=== PATIENT | male | born 1940 | race Caucasian/White ===

== ENCOUNTER 2022-03-08 21:21 | Inpatient (IN) | payer MEDICAID ==
[~2022-03-08] VITALS: Ht 162.6 cm; Wt 65.3 kg
[2022-03-08] MEDS ORDERED: SODIUM CHLORIDE 0.9% 1000ML BAG (SEPSIS BOLUS) IV ONE (21:45)
[2022-03-08 22:04] LABS: HEMATOCRIT. 38.2 % (42.0-52.0); HEMOGLOBIN. 12.6 g/dL (14.0-18.0); MEAN CORPUSCULAR HEMOGLOBIN 30.6 pg (28.0-32.0); MEAN CORPUSCULAR VOLUME 93.1 fL (80.0-94.0); MEAN PLATELET VOLUME 8.2 fl (7.4-10.4); PLATELET 153 x1000/uL (130-400); RED CELL DISTRIBUTION WIDTH 14.3 % (11.6-14.6)
[2022-03-08 22:09] LABS: CHLORIDE 97 mEq/L (98-107)
[2022-03-08 22:12] LABS: INR 1.3; PROTHROMBIN TIME 13.3 sec (9.6-11.0)
[2022-03-08 22:44] LABS: PLATELET ESTIMATE NORMAL
[2022-03-08] MEDS ORDERED: VANCOMYCIN 1G PREMIX 200 ML IV ONE (22:45)
[2022-03-08] MEDS ORDERED: PIPERACILLIN/TAZ 3.375G PREMIX 50 ML IV ONE (22:45)
[2022-03-09] VITALS (8 sets, daily range): BP systolic 124–148; BP diastolic 70–87
[2022-03-09 00:40] LABS: CLARITY URINE TURBID (CLEAR); COLOR URINE DARK YELLOW (YELLOW); KETONES URINE TRACE (NEGATIVE); LEUKOCYTE ESTERASE URINE 2+ (NEGATIVE); NITRITE URINE NEGATIVE (NEGATIVE); OCCULT BLOOD URINE 2+ (NEGATIVE); PROTEIN URINE 3+ (NEGATIVE); SPECIFIC GRAVITY URINE 1.022 (1.005-1.030)
[2022-03-09] MEDS ORDERED: ONDANSETRON HCL 4MG/2ML INJ IV PRN (11:00)
[2022-03-09] MEDS ORDERED: [UNRECOGNIZED DRUG - OTHER] PO (11:27)
[2022-03-09] MEDS: PIPERACILLIN/TAZOBACTAM 3.375 G in DEXTROSE 5% WATER 50 ML IV SCH ×2 (15:13→22:43)
[2022-03-09] MEDS: SODIUM CHLORIDE 0.9% 1,000 ML IV SCH (15:13)
[2022-03-10] VITALS (12 sets, daily range): BP systolic 122–141; BP diastolic 67–89
[2022-03-10] MEDS: SODIUM CHLORIDE 0.9% 1,000 ML IV SCH ×2 (00:56→14:08)
[2022-03-10] MEDS: PIPERACILLIN/TAZOBACTAM 3.375 G in DEXTROSE 5% WATER 50 ML IV SCH (05:40)
[2022-03-10 06:24] LABS: HEMATOCRIT. 35.2 % (42.0-52.0); HEMOGLOBIN. 11.8 g/dL (14.0-18.0); MEAN CORPUSCULAR HEMOGLOBIN 30.8 pg (28.0-32.0); MEAN CORPUSCULAR VOLUME 91.8 fL (80.0-94.0); MEAN PLATELET VOLUME 9.4 fl (7.4-10.4); PLATELET 106 x1000/uL (130-400); RED BLOOD CELL COUNT 3.83 mill/uL (4.7-6.1); RED CELL DISTRIBUTION WIDTH 14.2 % (11.6-14.6)
[2022-03-10 13:48] LABS: PLATELET ESTIMATE DECREASED
[2022-03-10] MEDS: MEROPENEM 1,000 MG in SODIUM CHLORIDE 0.9% 100 ML IV SCH ×2 (13:59→22:43)
[2022-03-11] VITALS (14 sets, daily range): BP systolic 123–147; BP diastolic 72–111
[2022-03-11] MEDS: SODIUM CHLORIDE 0.9% 1,000 ML IV SCH ×2 (03:13→15:58)
[2022-03-11 05:37] LABS: BASOPHILS % 0.2 % (0.0-2.0); HEMATOCRIT. 36.8 % (42.0-52.0); HEMOGLOBIN. 12.3 g/dL (14.0-18.0); LYMPHOCYTES % 8.5 % (20.0-50.0); MEAN CORPUSCULAR HEMOGLOBIN 30.9 pg (28.0-32.0); MEAN CORPUSCULAR VOLUME 92.7 fL (80.0-94.0); MEAN PLATELET VOLUME 9.4 fl (7.4-10.4); MONOCYTES % 2.5 % (2.0-8.0); NEUTROPHILS % 87.8 % (40.0-76.0); PLATELET 90 x1000/uL (130-400); RED BLOOD CELL COUNT 3.97 mill/uL (4.7-6.1); RED CELL DISTRIBUTION WIDTH 14.4 % (11.6-14.6)
[2022-03-11] MEDS ORDERED: ADENOSINE 3 MG/ML 2ML VIAL IV ONE (07:40)
[2022-03-11] MEDS ORDERED: ADENOSINE 3 MG/ML 2ML VIAL IV SCH ×2 (07:45→08:00)
[2022-03-11] MEDS ORDERED: DILTIAZEM HCL 125 MG in DEXT 5% WATER 100 ML IV PRN ×2 (08:00→08:13)
[2022-03-11] MEDS ORDERED: DILTIAZEM HCL 5MG/ML 5ML VIAL IV SCH (09:00)
[2022-03-11] MEDS: DILTIAZEM 125MG/125ML PMX 125 ML IV SCH (09:00)
[2022-03-11] MEDS ORDERED: METOPROLOL TARTRATE 25MG TABLET PO NR (10:30)
[2022-03-11] MEDS: MEROPENEM 1,000 MG in SODIUM CHLORIDE 0.9% 100 ML IV SCH ×2 (10:56→22:09)
[2022-03-11] MEDS: DIPHENHYDRAMINE 50MG/ML VIAL IV PRN (17:43)
[2022-03-11] MEDS: METOPROLOL TARTRATE 25MG TABLET PO SCH (22:09)
[2022-03-12] VITALS (12 sets, daily range): BP systolic 102–145; BP diastolic 64–92
[2022-03-12] MEDS: DIPHENHYDRAMINE 50MG/ML VIAL IV PRN ×3 (01:41→20:46)
[2022-03-12] MEDS: SODIUM CHLORIDE 0.9% 1,000 ML IV SCH ×2 (06:12→20:22)
[2022-03-12] MEDS: DILTIAZEM 125MG/125ML PMX 125 ML IV SCH ×2 (07:52→23:11)
[2022-03-12] MEDS: RISPERIDONE 0.5MG TABLET PO SCH (10:21)
[2022-03-12] MEDS: MEROPENEM 1,000 MG in SODIUM CHLORIDE 0.9% 100 ML IV SCH ×2 (10:21→20:46)
[2022-03-12] MEDS: METOPROLOL TARTRATE 25MG TABLET PO SCH (10:21)
[2022-03-12] MEDS ORDERED: METOPROLOL TARTRATE 50MG TABLET PO NR (14:45)
[2022-03-12] MEDS ORDERED: DILTIAZEM HCL 5MG/ML 5ML VIAL IV NR ×2 (14:45→22:28)
[2022-03-12 15:00] LABS: BG BASE EXCESS -9.9 mmol/L (-2.0-2.0); BG CARBOXYHEMOGLOBIN 0.1 % (0.5-1.5); BG DEOXYHEMOGLOBIN 11.9 % (0.0-5.0); BG HCO3 ACT 11.9 mmol/L (22.0-26.0); BG METHEMOGLOBIN 0.1 % (0.0-1.5); BG OXYGEN SATURATION 88.1 % (92.0-98.5); BG OXYHEMOGLOBIN 87.9 % (94.0-97.0); BG PCO2 18.8 mmHg (35.0-45.0); BG PH 7.419 (7.350-7.450); BG PO2 54.6 mmHg (75.0-100.0); BG SAMPLE SITE RIGHT BRACHIAL; BG TOTAL HEMOGLOBIN 14.5 g/dL (12.0-18.0); BG VENT MODE NASAL CANNULA
[2022-03-12] MEDS: IPRATROPIUM BROMIDE (0.02%) 0.5MG/2.5ML NEB HHN SCH ×2 (15:29→19:45)
[2022-03-12 18:09] LABS: HEMATOCRIT. 38.9 % (42.0-52.0); HEMOGLOBIN. 12.7 g/dL (14.0-18.0); MEAN CORPUSCULAR HEMOGLOBIN 30.2 pg (28.0-32.0); MEAN CORPUSCULAR VOLUME 92.3 fL (80.0-94.0); MEAN PLATELET VOLUME 9.6 fl (7.4-10.4); PLATELET 111 x1000/uL (130-400); RED BLOOD CELL COUNT 4.21 mill/uL (4.7-6.1); RED CELL DISTRIBUTION WIDTH 14.4 % (11.6-14.6)
[2022-03-12 18:25] LABS: CHLORIDE 107 mEq/L (98-107)
[2022-03-12] MEDS ORDERED: LORAZEPAM 0.5MG TABLET PO PRN (19:30)
[2022-03-12 19:34] LABS: PLATELET ESTIMATE DECREASED
[2022-03-12] MEDS: METOPROLOL TARTRATE 50MG TABLET PO SCH (20:46)
[2022-03-13] VITALS (12 sets, daily range): BP systolic 104–132; BP diastolic 48–89
[2022-03-13] MEDS ORDERED: POTASSIUM CHLORIDE 20MEQ TABLET SR PO NR
[2022-03-13] MEDS: IPRATROPIUM BROMIDE (0.02%) 0.5MG/2.5ML NEB HHN SCH ×6 (00:01→20:44)
[2022-03-13] MEDS ORDERED: FUROSEMIDE 40MG/4ML VIAL IVP NR (00:15)
[2022-03-13 06:35] LABS: CHLORIDE 109 mEq/L (98-107)
[2022-03-13 06:56] LABS: HEMATOCRIT. 38.2 % (42.0-52.0); HEMOGLOBIN. 12.5 g/dL (14.0-18.0); MEAN CORPUSCULAR VOLUME 91.5 fL (80.0-94.0); MEAN PLATELET VOLUME 9.9 fl (7.4-10.4); PLATELET 125 x1000/uL (130-400); RED BLOOD CELL COUNT 4.17 mill/uL (4.7-6.1); RED CELL DISTRIBUTION WIDTH 14.2 % (11.6-14.6)
[2022-03-13] MEDS: MEROPENEM 1,000 MG in SODIUM CHLORIDE 0.9% 100 ML IV SCH ×3 (09:53→23:00)
[2022-03-13] MEDS: RISPERIDONE 0.5MG TABLET PO SCH (09:53)
[2022-03-13] MEDS: METOPROLOL TARTRATE 50MG TABLET PO SCH (09:53)
[2022-03-13 11:20] LABS: PLATELET ESTIMATE SLIGHTLY DECREASED
[2022-03-13] MEDS ORDERED: CARVEDILOL 3.125 MG TABLET PO NR (11:30)
[2022-03-13] MEDS ORDERED: MAGNESIUM OXIDE 400MG TABLET PO SCH (12:00)
[2022-03-13] MEDS: DILTIAZEM 125MG/125ML PMX 125 ML IV SCH ×2 (13:00→18:37)
[2022-03-13] MEDS ORDERED: FUROSEMIDE 20MG/2ML VIAL IVP SCH (14:00)
[2022-03-13] MEDS ORDERED: MAGNESIUM 2 G PREMIX 50 ML IV NR (14:00)
[2022-03-13] MEDS: MAGNESIUM OXIDE 400MG TABLET PO SCH (14:53)
[2022-03-13 15:59] LABS: BG BASE EXCESS -3.6 mmol/L (-2.0-2.0); BG CARBOXYHEMOGLOBIN 0.3 % (0.5-1.5); BG DEOXYHEMOGLOBIN 0.4 % (0.0-5.0); BG FRACTION INSPIRED OXYGEN 100; BG HCO3 ACT 18.6 mmol/L (22.0-26.0); BG METHEMOGLOBIN 0.3 % (0.0-1.5); BG OXYGEN SATURATION 99.6 % (92.0-98.5); BG PCO2 26.2 mmHg (35.0-45.0); BG PH 7.469 (7.350-7.450); BG PO2 435.3 mmHg (75.0-100.0); BG SAMPLE SITE RIGHT RADIAL; BG TOTAL HEMOGLOBIN 13.1 g/dL (12.0-18.0); BG VENT MODE MASK - BIPAP
[2022-03-13] MEDS: DILTIAZEM HCL 30MG TABLET PO SCH ×2 (17:43→23:00)
[2022-03-13] MEDS: CARVEDILOL 3.125 MG TABLET PO SCH (23:01)
[2022-03-14] VITALS (12 sets, daily range): BP systolic 96–132; BP diastolic 53–80
[2022-03-14] MEDS: IPRATROPIUM BROMIDE (0.02%) 0.5MG/2.5ML NEB HHN SCH ×6 (00:13→21:45)
[2022-03-14] MEDS: MEROPENEM 1,000 MG in SODIUM CHLORIDE 0.9% 100 ML IV SCH ×3 (05:09→21:00)
[2022-03-14] MEDS: DILTIAZEM HCL 30MG TABLET PO SCH ×3 (06:11→21:02)
[2022-03-14 06:16] LABS: CHLORIDE 109 mEq/L (98-107)
[2022-03-14 06:18] LABS: BASOPHILS % 0.1 % (0.0-2.0); EOSINOPHILS % 1.3 % (0.0-5.0); HEMATOCRIT. 37.9 % (42.0-52.0); HEMOGLOBIN. 12.4 g/dL (14.0-18.0); LYMPHOCYTES % 8.5 % (20.0-50.0); MEAN CORPUSCULAR HEMOGLOBIN 30.1 pg (28.0-32.0); MEAN PLATELET VOLUME 9.3 fl (7.4-10.4); NEUTROPHILS % 86.1 % (40.0-76.0); PLATELET 166 x1000/uL (130-400); RED BLOOD CELL COUNT 4.12 mill/uL (4.7-6.1); RED CELL DISTRIBUTION WIDTH 14.5 % (11.6-14.6)
[2022-03-14] MEDS: RISPERIDONE 0.5MG TABLET PO SCH (08:35)
[2022-03-14] MEDS: CARVEDILOL 3.125 MG TABLET PO SCH ×2 (08:35→21:00)
[2022-03-14] MEDS: MAGNESIUM OXIDE 400MG TABLET PO SCH (08:36)
[2022-03-14] MEDS: FUROSEMIDE 40MG/4ML VIAL IVP SCH (11:00)
[2022-03-14] MEDS ORDERED: IOHEXOL-350 100 ML BOTTLE ONE (14:09)
[2022-03-14] MEDS: DIPHENHYDRAMINE 50MG/ML VIAL IV PRN ×2 (15:23→22:55)
[2022-03-15] VITALS (12 sets, daily range): BP systolic 109–145; BP diastolic 41–100
[2022-03-15] MEDS: IPRATROPIUM BROMIDE (0.02%) 0.5MG/2.5ML NEB HHN SCH ×7 (00:09→23:44)
[2022-03-15 06:00] LABS: HEMATOCRIT. 33.7 % (42.0-52.0); HEMOGLOBIN. 11.4 g/dL (14.0-18.0); MEAN CORPUSCULAR HEMOGLOBIN 30.4 pg (28.0-32.0); MEAN CORPUSCULAR VOLUME 89.9 fL (80.0-94.0); MEAN PLATELET VOLUME 9.1 fl (7.4-10.4); PLATELET 182 x1000/uL (130-400); RED BLOOD CELL COUNT 3.75 mill/uL (4.7-6.1); RED CELL DISTRIBUTION WIDTH 14.2 % (11.6-14.6)
[2022-03-15] MEDS: MEROPENEM 1,000 MG in SODIUM CHLORIDE 0.9% 100 ML IV SCH ×2 (06:02→13:21)
[2022-03-15 06:03] LABS: CHLORIDE 104 mEq/L (98-107)
[2022-03-15] MEDS: DILTIAZEM HCL 30MG TABLET PO SCH ×3 (06:04→22:00)
[2022-03-15] MEDS: FUROSEMIDE 40MG/4ML VIAL IVP SCH (08:18)
[2022-03-15] MEDS: RISPERIDONE 0.5MG TABLET PO SCH (08:18)
[2022-03-15] MEDS: MAGNESIUM OXIDE 400MG TABLET PO SCH (08:18)
[2022-03-15] MEDS: CARVEDILOL 3.125 MG TABLET PO SCH ×2 (08:18→21:00)
[2022-03-15] MEDS: MULTIVITAMINS,THER W-MINERALS TABLET PO SCH (08:18)
[2022-03-15] MEDS ORDERED: POTASSIUM CHLORIDE 20MEQ TABLET SR PO NR (10:45)
[2022-03-15 14:48] LABS: PLATELET ESTIMATE NORMAL
[2022-03-16] VITALS (8 sets, daily range): BP systolic 107–123; BP diastolic 57–94
[2022-03-16] MEDS: MEROPENEM 1,000 MG in SODIUM CHLORIDE 0.9% 100 ML IV SCH ×3 (01:17→13:23)
[2022-03-16] MEDS: COLCHICINE 0.6MG TABLET PO SCH ×2 (01:39→01:50)
[2022-03-16] MEDS: DIPHENHYDRAMINE 50MG/ML VIAL IV PRN ×2 (01:50→10:27)
[2022-03-16] MEDS: IPRATROPIUM BROMIDE (0.02%) 0.5MG/2.5ML NEB HHN SCH ×5 (04:15→20:40)
[2022-03-16] MEDS: DILTIAZEM HCL 30MG TABLET PO SCH ×3 (06:57→22:00)
[2022-03-16] MEDS: FUROSEMIDE 40MG/4ML VIAL IVP SCH (08:57)
[2022-03-16] MEDS: MAGNESIUM OXIDE 400MG TABLET PO SCH (08:57)
[2022-03-16] MEDS: CARVEDILOL 3.125 MG TABLET PO SCH ×2 (08:57→21:00)
[2022-03-16] MEDS: RISPERIDONE 0.5MG TABLET PO SCH (08:58)
[2022-03-16] MEDS: MULTIVITAMINS,THER W-MINERALS TABLET PO SCH (08:58)
[2022-03-16 10:42] LABS: HEMATOCRIT 36.3 % (42.0-52.0); HEMOGLOBIN 12.1 g/dL (14.0-18.0); MEAN CORPUSCULAR HEMOGLOBIN 29.9 pg (28.0-32.0); MEAN CORPUSCULAR VOLUME 90.1 fL (80.0-94.0); PLATELET 271 x1000/uL (130-400); RED BLOOD CELL COUNT 4.03 mill/uL (4.7-6.1); RED CELL DISTRIBUTION WIDTH 14.3 % (11.6-14.6)
[2022-03-16 10:59] LABS: CHLORIDE 97 mEq/L (98-107)
[2022-03-17] VITALS (7 sets, daily range): BP systolic 101–119; BP diastolic 51–65
[2022-03-17] MEDS: COLCHICINE 0.6MG TABLET PO SCH ×3 (00:31→20:46)
[2022-03-17] MEDS: MEROPENEM 1,000 MG in SODIUM CHLORIDE 0.9% 100 ML IV SCH ×4 (00:35→23:01)
[2022-03-17] MEDS: IPRATROPIUM BROMIDE (0.02%) 0.5MG/2.5ML NEB HHN SCH ×7 (00:41→23:44)
[2022-03-17 06:18] LABS: CHLORIDE 96 mEq/L (98-107)
[2022-03-17 06:23] LABS: BASOPHILS % 0.4 % (0.0-2.0); EOSINOPHILS % 1.5 % (0.0-5.0); HEMATOCRIT. 33.2 % (42.0-52.0); LYMPHOCYTES % 15.6 % (20.0-50.0); MEAN CORPUSCULAR HEMOGLOBIN 29.9 pg (28.0-32.0); MEAN CORPUSCULAR VOLUME 90.3 fL (80.0-94.0); MEAN PLATELET VOLUME 8.7 fl (7.4-10.4); MONOCYTES % 6.7 % (2.0-8.0); NEUTROPHILS % 75.8 % (40.0-76.0); PLATELET 312 x1000/uL (130-400); RED BLOOD CELL COUNT 3.68 mill/uL (4.7-6.1)
[2022-03-17] MEDS: DILTIAZEM HCL 30MG TABLET PO SCH ×3 (07:04→22:00)
[2022-03-17] MEDS ORDERED: GUAIFENESIN 200MG/10ML SUGAR FREE UDC PO PRN (07:15)
[2022-03-17] MEDS ORDERED: POTASSIUM CHLORIDE 20MEQ TABLET SR PO NR (09:00)
[2022-03-17] MEDS: FUROSEMIDE 40MG/4ML VIAL IVP SCH (09:05)
[2022-03-17] MEDS: MAGNESIUM OXIDE 400MG TABLET PO SCH (09:05)
[2022-03-17] MEDS: RISPERIDONE 0.5MG TABLET PO SCH (09:06)
[2022-03-17] MEDS: MULTIVITAMINS,THER W-MINERALS TABLET PO SCH (09:06)
[2022-03-17] MEDS: CARVEDILOL 3.125 MG TABLET PO SCH ×2 (09:06→20:47)
[2022-03-17] MEDS ORDERED: MAGNESIUM 1 G PREMIX 100 ML IV NR (10:00)
[2022-03-18] VITALS (7 sets, daily range): BP systolic 96–107; BP diastolic 55–70
[2022-03-18] MEDS: IPRATROPIUM BROMIDE (0.02%) 0.5MG/2.5ML NEB HHN SCH ×6 (03:48→23:00)
[2022-03-18] MEDS: MEROPENEM 1,000 MG in SODIUM CHLORIDE 0.9% 100 ML IV SCH ×3 (05:05→21:39)
[2022-03-18] MEDS: DILTIAZEM HCL 30MG TABLET PO SCH ×3 (06:00→22:00)
[2022-03-18 06:16] LABS: CHLORIDE 92 mEq/L (98-107)
[2022-03-18 06:18] LABS: BASOPHILS % 0.3 % (0.0-2.0); EOSINOPHILS % 1.2 % (0.0-5.0); HEMOGLOBIN. 11.2 g/dL (14.0-18.0); LYMPHOCYTES % 15.2 % (20.0-50.0); MEAN CORPUSCULAR HEMOGLOBIN 30.8 pg (28.0-32.0); MEAN CORPUSCULAR VOLUME 90.4 fL (80.0-94.0); MEAN PLATELET VOLUME 8.6 fl (7.4-10.4); MONOCYTES % 8.4 % (2.0-8.0); NEUTROPHILS % 74.9 % (40.0-76.0); PLATELET 393 x1000/uL (130-400); RED BLOOD CELL COUNT 3.64 mill/uL (4.7-6.1); RED CELL DISTRIBUTION WIDTH 13.8 % (11.6-14.6)
[2022-03-18] MEDS: MULTIVITAMINS,THER W-MINERALS TABLET PO SCH (08:32)
[2022-03-18] MEDS: RISPERIDONE 0.5MG TABLET PO SCH (08:32)
[2022-03-18] MEDS: FUROSEMIDE 40MG/4ML VIAL IVP SCH (08:32)
[2022-03-18] MEDS: COLCHICINE 0.6MG TABLET PO SCH ×2 (08:32→21:37)
[2022-03-18] MEDS: MAGNESIUM OXIDE 400MG TABLET PO SCH (08:32)
[2022-03-18] MEDS: CARVEDILOL 3.125 MG TABLET PO SCH ×2 (08:32→21:41)
[2022-03-18] MEDS ORDERED: POTASSIUM CHLORIDE 20MEQ TABLET SR PO SCH (08:45)
[2022-03-18] MEDS ORDERED: POTASSIUM CHLORIDE 20MEQ TABLET SR PO NR (10:30)
[2022-03-18] MEDS: DIPHENHYDRAMINE 50MG/ML VIAL IV PRN (19:38)
[2022-03-19] VITALS (8 sets, daily range): BP systolic 102–117; BP diastolic 50–70
[2022-03-19] MEDS: IPRATROPIUM BROMIDE (0.02%) 0.5MG/2.5ML NEB HHN SCH ×5 (03:00→21:29)
[2022-03-19] MEDS: DILTIAZEM HCL 30MG TABLET PO SCH ×3 (06:00→21:40)
[2022-03-19] MEDS: MEROPENEM 1,000 MG in SODIUM CHLORIDE 0.9% 100 ML IV SCH ×3 (06:06→21:39)
[2022-03-19 07:37] LABS: BASOPHILS % 1.1 % (0.0-2.0); EOSINOPHILS % 1.7 % (0.0-5.0); HEMATOCRIT. 34.7 % (42.0-52.0); HEMOGLOBIN. 11.7 g/dL (14.0-18.0); LYMPHOCYTES % 21.8 % (20.0-50.0); MEAN CORPUSCULAR HEMOGLOBIN 30.5 pg (28.0-32.0); MEAN CORPUSCULAR VOLUME 90.2 fL (80.0-94.0); MEAN PLATELET VOLUME 8.4 fl (7.4-10.4); MONOCYTES % 11.5 % (2.0-8.0); NEUTROPHILS % 63.9 % (40.0-76.0); PLATELET 508 x1000/uL (130-400); RED BLOOD CELL COUNT 3.85 mill/uL (4.7-6.1); RED CELL DISTRIBUTION WIDTH 13.6 % (11.6-14.6)
[2022-03-19 07:43] LABS: CHLORIDE 95 mEq/L (98-107)
[2022-03-19] MEDS: CARVEDILOL 3.125 MG TABLET PO SCH ×2 (09:00→21:00)
[2022-03-19] MEDS: COLCHICINE 0.6MG TABLET PO SCH ×2 (09:09→21:37)
[2022-03-19] MEDS: FUROSEMIDE 40MG/4ML VIAL IVP SCH (09:09)
[2022-03-19] MEDS: MAGNESIUM OXIDE 400MG TABLET PO SCH (09:09)
[2022-03-19] MEDS: MULTIVITAMINS,THER W-MINERALS TABLET PO SCH (09:09)
[2022-03-19] MEDS: RISPERIDONE 0.5MG TABLET PO SCH (09:09)
[2022-03-19] MEDS: DIPHENHYDRAMINE 50MG/ML VIAL IV PRN (20:00)
[2022-03-19] MEDS ORDERED: LIDOCAINE HCL 1% 20ML VIAL (Pyxis) INJ INFIL NR (21:30)
[2022-03-20] VITALS (10 sets, daily range): BP systolic 87–140; BP diastolic 49–96
[2022-03-20] MEDS: IPRATROPIUM BROMIDE (0.02%) 0.5MG/2.5ML NEB HHN SCH ×6 (00:41→19:53)
[2022-03-20] MEDS: MEROPENEM 1,000 MG in SODIUM CHLORIDE 0.9% 100 ML IV SCH ×3 (05:53→21:11)
[2022-03-20] MEDS: DILTIAZEM HCL 30MG TABLET PO SCH ×3 (05:53→21:10)
[2022-03-20] MEDS: MAGNESIUM OXIDE 400MG TABLET PO SCH (09:37)
[2022-03-20] MEDS: MULTIVITAMINS,THER W-MINERALS TABLET PO SCH (09:37)
[2022-03-20] MEDS: FUROSEMIDE 40MG/4ML VIAL IVP SCH (09:37)
[2022-03-20] MEDS: COLCHICINE 0.6MG TABLET PO SCH ×2 (09:39→21:11)
[2022-03-20] MEDS: CARVEDILOL 3.125 MG TABLET PO SCH ×2 (09:39→21:10)
[2022-03-20] MEDS: RISPERIDONE 0.5MG TABLET PO SCH (09:40)
[2022-03-20] MEDS: DIPHENHYDRAMINE 50MG/ML VIAL IV PRN (21:11)
[2022-03-21] VITALS (11 sets, daily range): BP systolic 90–121; BP diastolic 43–71
[2022-03-21] MEDS: IPRATROPIUM BROMIDE (0.02%) 0.5MG/2.5ML NEB HHN SCH ×6 (01:14→21:18)
[2022-03-21] MEDS: MEROPENEM 1,000 MG in SODIUM CHLORIDE 0.9% 100 ML IV SCH ×3 (06:51→22:09)
[2022-03-21] MEDS: DILTIAZEM HCL 30MG TABLET PO SCH ×3 (06:53→22:00)
[2022-03-21] MEDS: COLCHICINE 0.6MG TABLET PO SCH ×2 (08:13→22:09)
[2022-03-21] MEDS: CARVEDILOL 3.125 MG TABLET PO SCH ×2 (08:13→21:00)
[2022-03-21] MEDS: FUROSEMIDE 40MG/4ML VIAL IVP SCH (08:13)
[2022-03-21] MEDS: RISPERIDONE 0.5MG TABLET PO SCH (08:13)
[2022-03-21] MEDS: MAGNESIUM OXIDE 400MG TABLET PO SCH (08:14)
[2022-03-21] MEDS: MULTIVITAMINS,THER W-MINERALS TABLET PO SCH (08:14)
[2022-03-21 09:04] LABS: BASOPHILS % 1.1 % (0.0-2.0); EOSINOPHILS % 4.3 % (0.0-5.0); HEMATOCRIT. 35.6 % (42.0-52.0); HEMOGLOBIN. 12.1 g/dL (14.0-18.0); LYMPHOCYTES % 26.6 % (20.0-50.0); MEAN CORPUSCULAR HEMOGLOBIN 30.7 pg (28.0-32.0); MEAN CORPUSCULAR VOLUME 90.7 fL (80.0-94.0); MEAN PLATELET VOLUME 7.9 fl (7.4-10.4); MONOCYTES % 13.7 % (2.0-8.0); NEUTROPHILS % 54.3 % (40.0-76.0); PLATELET 607 x1000/uL (130-400); RED BLOOD CELL COUNT 3.93 mill/uL (4.7-6.1)
[2022-03-21 09:33] LABS: CHLORIDE 98 mEq/L (98-107)
[2022-03-21] MEDS: DIPHENHYDRAMINE 50MG/ML VIAL IV PRN (22:09)
[2022-03-22] VITALS (12 sets, daily range): BP systolic 101–118; BP diastolic 42–73
[2022-03-22] MEDS: IPRATROPIUM BROMIDE (0.02%) 0.5MG/2.5ML NEB HHN SCH ×6 (00:59→20:05)
[2022-03-22] MEDS: DILTIAZEM HCL 30MG TABLET PO SCH ×3 (06:48→21:40)
[2022-03-22] MEDS: MEROPENEM 1,000 MG in SODIUM CHLORIDE 0.9% 100 ML IV SCH ×3 (06:48→21:41)
[2022-03-22] MEDS: MULTIVITAMINS,THER W-MINERALS TABLET PO SCH (09:12)
[2022-03-22] MEDS: COLCHICINE 0.6MG TABLET PO SCH ×2 (09:12→21:40)
[2022-03-22] MEDS: RISPERIDONE 0.5MG TABLET PO SCH (09:12)
[2022-03-22] MEDS: FUROSEMIDE 40MG/4ML VIAL IVP SCH (09:12)
[2022-03-22] MEDS: CARVEDILOL 3.125 MG TABLET PO SCH ×2 (09:13→21:40)
[2022-03-22] MEDS: MAGNESIUM OXIDE 400MG TABLET PO SCH (09:14)
[2022-03-23] VITALS: BP 111/63
[2022-03-23] MEDS: IPRATROPIUM BROMIDE (0.02%) 0.5MG/2.5ML NEB HHN SCH ×3 (00:13→10:35)
[2022-03-23 04:00] VITALS: BP 107/63
[2022-03-23] MEDS: DILTIAZEM HCL 30MG TABLET PO SCH (07:19)
[2022-03-23] MEDS: MEROPENEM 1,000 MG in SODIUM CHLORIDE 0.9% 100 ML IV SCH (07:20)
[2022-03-23 08:00] VITALS: BP 114/69
[2022-03-23] MEDS: MAGNESIUM OXIDE 400MG TABLET PO SCH (10:15)
[2022-03-23] MEDS: CARVEDILOL 3.125 MG TABLET PO SCH (10:15)
[2022-03-23] MEDS: COLCHICINE 0.6MG TABLET PO SCH (10:15)
[2022-03-23] MEDS: MULTIVITAMINS,THER W-MINERALS TABLET PO SCH (10:16)
[2022-03-23] MEDS: RISPERIDONE 0.5MG TABLET PO SCH (10:16)
[2022-03-23] MEDS: FUROSEMIDE 40MG/4ML VIAL IVP SCH (10:16)
[2022-03-23] MEDS ORDERED: COLC0.6C3 MT (11:08)
[2022-03-23] MEDS ORDERED: FURO-151 MT (11:08)
[2022-03-23] MEDS ORDERED: COR3 PO (11:08)
[2022-03-23] MEDS ORDERED: DILT120C88 MT (11:08)
[2022-03-23 12:00] VITALS: BP 109/66
[2022-03-23 13:48] VITALS: BP 109/66
== END 2022-03-23 14:54 | disposition home or self-care (01) | DRG 710 ==
LOC: ER 21:21 → 5EST 23:46 → EDBEDREQTM 23:50 → EDBEDREQ 23:50 → ENRESERV 03-09 07:20 → 6EST 03-22 22:45
PROVIDERS: ADMIT Internal Medicine; ATTEND Internal Medicine
PROC: 5A09357 Assistance with Respiratory Ventilation, Less than 24 Consecutive Hours, Continuous Positive Airway Pressure (ICD-10-PCS; 2022-03-13)
PROC: 0KBV0ZZ Excision of Right Foot Muscle, Open Approach (ICD-10-PCS; principal; 2022-03-20)
DX: A41.51 Sepsis due to Escherichia coli [E. coli] (principal); N17.0 Acute kidney failure with tubular necrosis; J96.01 Acute respiratory failure with hypoxia; R65.21 Severe sepsis with septic shock; E43 Unspecified severe protein-calorie malnutrition; J18.9 Pneumonia, unspecified organism; G93.41 Metabolic encephalopathy; E87.1 Hypo-osmolality and hyponatremia; I50.23 Acute on chronic systolic (congestive) heart failure; I47.1 Supraventricular tachycardia; I48.91 Unspecified atrial fibrillation; E87.8 Other disorders of electrolyte and fluid balance, not elsewhere classified; N39.0 Urinary tract infection, site not specified; D64.9 Anemia, unspecified; M10.071 Idiopathic gout, right ankle and foot; E83.42 Hypomagnesemia; E88.09 Other disorders of plasma-protein metabolism, not elsewhere classified; Z20.822 Contact with and (suspected) exposure to COVID-19; E87.6 Hypokalemia; Z16.12 Extended spectrum beta lactamase (ESBL) resistance; I08.0 Rheumatic disorders of both mitral and aortic valves; I11.0 Hypertensive heart disease with heart failure; I25.2 Old myocardial infarction; Z79.899 Other long term (current) drug therapy; Z68.24 Body mass index [BMI] 24.0-24.9, adult; S91.109A Unspecified open wound of unspecified toe(s) without damage to nail, initial encounter
CPT/HCPCS: 36415; 36600; 71045; 71250; 71275; 73721; 76700; 80048; 80053; 81003; 82140; 82375; 82805; 82962; 83605; 83735; 83880; 84145; 84443; 84484; 84550; 85025; 85027; 85379; 87070; 87075; 87077; 87186; 87426; 93005; 93306; 93923; 93970; 94640; 94660; 97161; 97162; 97165; 97166; 99291; C9803; J0153; J1200; J1940; J2185; J2543; J3370; J3475; J3490; J7030; J7050; J7060; Q9967